=== PATIENT | male | born 1960 | race Caucasian/White ===

== ENCOUNTER 2018-07-27 08:50 | Emergency (ER) | payer OTHER ==
[~2018-07-27] VITALS: Ht 172.7 cm; Wt 88.5 kg
[2018-07-27 08:50] VITALS: BP 118/70
--- NOTE | 2018-07-27 09:16 | NUR ---
WORSENING LEFT SHOULDER PAIN S/P GLF X 1 MONTH AGO, PT IS CONSCIOUS AND COHERENT, NOT RESPIRATORY DISTRESS, VS STABLE.
[2018-07-27] MEDS ORDERED: IBUPROFEN 600 MG TABLET PO ONE ×2 (09:22→09:30)
--- NOTE | 2018-07-27 09:24 | NUR ---
Patient discharged to home in stable condition. Written and verbal after care instructions given. Patient verbalizes understanding of instruction.
== END 2018-07-27 09:28 | disposition home or self-care (01) ==
LOC: ER 08:57
DX: S46.092A Other injury of muscle(s) and tendon(s) of the rotator cuff of left shoulder, initial encounter (principal); Z60.2 Problems related to living alone; W18.39XA Other fall on same level, initial encounter; Y93.89 Activity, other specified; Y92.89 Other specified places as the place of occurrence of the external cause; Y99.8 Other external cause status
CPT/HCPCS: A4606; Z7610

== ENCOUNTER 2019-08-14 09:54 | Emergency (ER) | payer OTHER, MEDICAID ==
[~2019-08-14] VITALS: Ht 175.3 cm; Wt 93.0 kg
--- NOTE | 2019-08-14 10:01 | NUR ---
dr christianson at bedside for eval.
--- NOTE | 2019-08-14 10:07 | NUR ---
u/s tech at bedside for LLE venous ultrasound.
--- NOTE | 2019-08-14 10:58 | NUR ---
Patient discharged to home in stable condition. Written and verbal after care instructions given. Patient verbalizes understanding of instruction.
[2019-08-14 10:59] VITALS: BP 115/72
== END 2019-08-14 11:00 | disposition home or self-care (01) ==
LOC: ER 09:57
DX: L03.116 Cellulitis of left lower limb (principal); Z60.2 Problems related to living alone
CPT/HCPCS: 93971-TC

== ENCOUNTER 2019-10-03 08:47 | Emergency (ER) | payer MEDICAID, OTHER ==
[~2019-10-03] VITALS: Ht 175.3 cm; Wt 88.5 kg
--- NOTE | 2019-10-03 08:55 | NUR ---
BIB C/O L LEG PAIN PRESSURE/BURNING LIKE SENSATION STARTED LAST NIGHT, TO ER BED 9, HOOKED TO MONITOR, AWAITING MD HAJI
--- NOTE | 2019-10-03 09:34 | NUR ---
US TECH AT BEDSIDE
[2019-10-03 10:07] VITALS: BP 148/100
--- NOTE | 2019-10-03 10:07 | NUR ---
Patient discharged to home in stable condition. Written and verbal after care instructions given. Patient verbalizes understanding of instruction.
== END 2019-10-03 10:07 | disposition home or self-care (01) ==
LOC: ER 08:48
DX: I73.9 Peripheral vascular disease, unspecified (principal); Z60.2 Problems related to living alone
CPT/HCPCS: 93971-TC

== ENCOUNTER 2020-11-13 12:41 | Emergency (ER) | payer OTHER ==
[~2020-11-13] VITALS: Ht 175.3 cm; Wt 87.1 kg
--- NOTE | 2020-11-13 12:56 | NUR ---
CAME IN FOR LLE REDNESS AND ITSHING x 3 DAYS. TO ER BED 10, HOOKED TO MONITOR, CHANGED TO HOSP GOWN, WARM BLANKET PROVIDED, PATIENT AAO x 4, NAD NOTED. AWAITING FOR MD HAJI
--- NOTE | 2020-11-13 13:12 | NUR ---
DR CROSS AT BEDSIDE
--- NOTE | 2020-11-13 13:37 | NUR ---
GRIT REMOVAL OPERATOR AT BEDSIDE
[2020-11-13 14:21] LABS: BASOPHILS # (AUTO) 0.1 /CMM (0.0-0.2); BASOPHILS % (AUTO) 0.9 % (0.0-2.0); EOSINOPHILS % (AUTO) 5.1 % (0.0-6.0); HEMATOCRIT 46 % (39-51); HEMOGLOBIN 15.4 g/dL (13.5-17.5); LYMPHOCYTES # (AUTO) 1.7 /CMM (0.8-4.8); LYMPHOCYTES % (AUTO) 29.9 % (20.0-44.0); MEAN CORPUSCULAR HGB CONC 34 g/dl (31.0-36.0); MEAN CORPUSCULAR VOLUME 95 fL (80-96); MONOCYTES # (AUTO) 0.8 /CMM (0.1-1.30); NEUTROPHILS # (AUTO) 2.9 /CMM (1.8-8.9); NEUTROPHILS % (AUTO) 50.1 % (43.0-81.0); PLATELET COUNT (AUTO) 160 /CMM (150-450); RED BLOOD CELL COUNT(AUTO) 4.86 MIL/uL (4.5-6.0); WHITE BLOOD COUNT (AUTO) 5.8 K/uL (4.3-11.0)
[2020-11-13 14:33] LABS: CALCIUM, SERUM 8.8 mg/dL (8.5-10.1); CREATININE 1.2 mg/dL (0.6-1.3); POTASSIUM 4.3 mmol/L (3.5-5.1)
[2020-11-13] MEDS ORDERED: SULFAMETH/TRIMETH 800/160 MG 1 UDTAB TABLET PO ONE (15:00)
[2020-11-13] MEDS ORDERED: CEFTRIAXONE 1 G VIAL IM ONE (15:00)
[2020-11-13] MEDS ORDERED: predniSONE 20 MG TABLET PO ONE (15:00)
[2020-11-13] MEDS ORDERED: SULF1TAB48 PO (15:21)
[2020-11-13] MEDS ORDERED: CEPH500T PO (15:21)
[2020-11-13] MEDS ORDERED: PRED20TA PO (15:21)
[2020-11-13] MEDS ORDERED: LIDOCAINE /MPF 1% VIAL 5 ML VIAL ONE (15:23)
[2020-11-13] MEDS ORDERED: CEFTRIAXONE 1 G VIAL ONE (15:24)
[2020-11-13] MEDS ORDERED: SULFAMETH/TRIMETH 800/160 MG 1 UDTAB TABLET ONE (15:24)
[2020-11-13] MEDS ORDERED: predniSONE 20 MG TABLET ONE (15:24)
[2020-11-13 16:25] VITALS: BP 130/72
--- NOTE | 2020-11-13 16:25 | NUR ---
Patient discharged to home in stable condition. Written and verbal after care instructions given. Patient verbalizes understanding of instruction.
== END 2020-11-13 16:26 | disposition home or self-care (01) ==
LOC: ER 12:44
DX: L03.116 Cellulitis of left lower limb (principal); I73.9 Peripheral vascular disease, unspecified; Z60.2 Problems related to living alone; Z79.899 Other long term (current) drug therapy
CPT/HCPCS: 36415; 80048; 85025; 93926; 93971; 96372; 99285; J0696; J3490; J7512